=== PATIENT | female | born 1995 | race Caucasian/White ===

== ENCOUNTER 2020-05-26 10:52 | Inpatient (IN) | payer BC ==
[2020-05-26] MEDS ORDERED: SODIUM CHLORIDE 0.9% 1,000 ML IV STA ×2 (11:23→13:34)
--- NOTE | 2020-05-26 11:25 | ED ---
General Adult HPI - General Chief complaint: Urogenital Stated complaint: UTI Time Seen by Provider: 05/26/20 11:13 Source: patient, RN notes reviewed Mode of arrival: ambulatory Limitations: no limitations - History of Present Illness Initial comments: 25-year-old female presents to the emergency room for a chief complaint of abdominal pain. Patient reports that she started to develop abdominal pain 5 days ago. States it is in her lower abdomen. On Monday she went to urgent care and was told that she possibly had a urinary tract infection. She started on antibiotics then and was told she did not feel better today to come to the emergency room. Patient states she is still having lower abdominal pain. Worse on the right side. Hurts to lift her right leg up. She does state that she has a pressure with urinating but denies any burning sensation. Patient denies any lower upper back pain.Patient has no other complaints at this time including shortness of breath, chest pain, nausea or vomiting, headache, or visual changes. - Related Data Home Medications Medication Instructions Recorded Confirmed Sertraline [Zoloft] 25 mg PO DAILY 05/26/20 05/26/20 Sulfamethox-Tmp 800-160Mg [Bactrim 1 tab PO Q12HR 05/26/20 05/26/20 DS 800-160 mg] Allergies Allergy/AdvReac Type Severity Reaction Status Date / Time No Known Allergies Allergy Verified 05/26/20 11:58 Review of Systems ROS Statement: Those systems with pertinent positive or pertinent negative responses have been documented in the HPI. ROS Other: All systems not noted in ROS Statement are negative. Past Medical History Past Medical History: No Reported History History of Any Multi-Drug Resistant Organisms: None Reported Past Surgical History: No Surgical Hx Reported Past Psychological History: No Psychological Hx Reported Smoking Status: Former smoker Past Alcohol Use History: None Reported Past Drug Use History: None Reported General Exam Limitations: no limitations General appearance: alert, in no apparent distress Head exam: Present: atraumatic, normocephalic, normal inspection Eye exam: Present: normal appearance, PERRL, EOMI. Absent: scleral icterus, conjunctival injection, periorbital swelling ENT exam: Present: normal exam, mucous membranes moist Neck exam: Present: normal inspection, full ROM. Absent: tenderness, meningismus, lymphadenopathy Respiratory exam: Present: normal lung sounds bilaterally. Absent: respiratory distress, wheezes, rales, rhonchi, stridor Cardiovascular Exam: Present: regular rate, normal rhythm, normal heart sounds. Absent: systolic murmur, diastolic murmur, rubs, gallop, clicks GI/Abdominal exam: Present: soft, tenderness (generalized lower abdominal tenderness), normal bowel sounds (generalized lower abdominal tenderness). Absent: distended, guarding, rebound, rigid Course Vital Signs 05/26/20 11:06 Temperature 98.0 F Pulse Rate 120 H Respiratory 16 Rate Blood Pressure 111/73 O2 Sat by Pulse 97 Oximetry Medical Decision Making - Medical Decision Making Patient presents initially tachycardic. Regular however stable. Physical exam did reveal generalized lower abdominal tenderness. CBC does reveal leukocytosis of 21.6 with a left shift. CMP unremarkable. Urinalysis does show 4+ ketones, contaminated with squamous cells. CT abdomen and pelvis shows a probably ruptured appendicitis. patient was started on Zosyn, given IV fluids. On-call surgeon Dr. Hicks was consulted, accepts patient. - Lab Data Result diagrams: 05/26/20 11:32 05/26/20 11:32 Lab Results 05/26/20 05/26/20 05/26/20 Range/Units 11:32 11:32 11:32 WBC 21.6 H (3.8-10.6) k/uL RBC 4.88 (3.80-5.40) m/uL Hgb 14.2 (11.4-16.0) gm/dL Hct 42.7 (34.0-46.0) % MCV 87.5 (80.0-100.0) fL MCH 29.0 (25.0-35.0) pg MCHC 33.2 (31.0-37.0) g/dL RDW 13.6 (11.5-15.5) % Plt Count 244 (150-450) k/uL MPV 7.5 Neutrophils % 90 % Lymphocytes % 5 % Monocytes % 3 % Eosinophils % 1 % Basophils % 0 % Neutrophils # 19.6 H (1.3-7.7) k/uL Lymphocytes # 1.2 (1.0-4.8) k/uL Monocytes # 0.7 (0-1.0) k/uL Eosinophils # 0.1 (0-0.7) k/uL Basophils # 0.0 (0-0.2) k/uL Sodium (137-145) mmol/L Potassium (3.5-5.1) mmol/L Chloride (98-107) mmol/L Carbon Dioxide (22-30) mmol/L Anion Gap mmol/L BUN (7-17) mg/dL Creatinine (0.52-1.04) mg/dL Est GFR (CKD-EPI)AfAm (>60 ml/min/1.73 sqM) Est GFR (CKD-EPI)NonAf (>60 ml/min/1.73 sqM) Glucose (74-99) mg/dL Plasma Lactic Acid Micky (0.7-2.0) mmol/L Calcium (8.4-10.2) mg/dL Total Bilirubin (0.2-1.3) mg/dL AST (14-36) U/L ALT (4-34) U/L Alkaline Phosphatase (38-126) U/L Total Protein (6.3-8.2) g/dL Albumin (3.5-5.0) g/dL Amylase (30-110) U/L Lipase (23-300) U/L Urine Color Light Brown Urine Appearance Cloudy H (Clear) Urine pH 6.0 (5.0-8.0) Ur Specific Velva 1.035 (1.001-1.035) Urine Protein 2+ H (Negative) Urine Glucose (UA) Negative (Negative) Urine Ketones 4+ H (Negative) Urine Blood Small H (Negative) Urine Nitrite Negative (Negative) Urine Bilirubin 1+ H (Negative) Urine Urobilinogen 12.0 (<2.0) mg/dL Ur Leukocyte Esterase Small H (Negative) Urine RBC 5 (0-5) /hpf Urine WBC 10 H (0-5) /hpf Ur Squamous Epith Cells 26 H (0-4) /hpf Urine Bacteria Rare H (None) /hpf Hyaline Casts 6 H (0-2) /lpf Urine Mucus Many H (None) /hpf Urine HCG, Qual Not Detected (Not Detectd) 05/26/20 05/26/20 Range/Units 11:32 11:32 WBC (3.8-10.6) k/uL RBC (3.80-5.40) m/uL Hgb (11.4-16.0) gm/dL Hct (34.0-46.0) % MCV (80.0-100.0) fL MCH (25.0-35.0) pg MCHC (31.0-37.0) g/dL RDW (11.5-15.5) % Plt Count (150-450) k/uL MPV Neutrophils % % Lymphocytes % % Monocytes % % Eosinophils % % Basophils % % Neutrophils # (1.3-7.7) k/uL Lymphocytes # (1.0-4.8) k/uL Monocytes # (0-1.0) k/uL Eosinophils # (0-0.7) k/uL Basophils # (0-0.2) k/uL Sodium 135 L (137-145) mmol/L Potassium 4.2 (3.5-5.1) mmol/L Chloride 99 (98-107) mmol/L Carbon Dioxide 23 (22-30) mmol/L Anion Gap 13 mmol/L BUN 8 (7-17) mg/dL Creatinine 0.89 (0.52-1.04) mg/dL Est GFR (CKD-EPI)AfAm >90 (>60 ml/min/1.73 sqM) Est GFR (CKD-EPI)NonAf 90 (>60 ml/min/1.73 sqM) Glucose 119 H (74-99) mg/dL Plasma Lactic Acid Micky 1.6 (0.7-2.0) mmol/L Calcium 9.6 (8.4-10.2) mg/dL Total Bilirubin 1.1 (0.2-1.3) mg/dL AST 19 (14-36) U/L ALT 21 (4-34) U/L Alkaline Phosphatase 79 (38-126) U/L Total Protein 8.0 (6.3-8.2) g/dL Albumin 4.8 (3.5-5.0) g/dL Amylase 49 (30-110) U/L Lipase 72 (23-300) U/L Urine Color Urine Appearance (Clear) Urine pH (5.0-8.0) Ur Specific Velva (1.001-1.035) Urine Protein (Negative) Urine Glucose (UA) (Negative) Urine Ketones (Negative) Urine Blood (Negative) Urine Nitrite (Negative) Urine Bilirubin (Negative) Urine Urobilinogen (<2.0) mg/dL Ur Leukocyte Esterase (Negative) Urine RBC (0-5) /hpf Urine WBC (0-5) /hpf Ur Squamous Epith Cells (0-4) /hpf Urine Bacteria (None) /hpf Hyaline Casts (0-2) /lpf Urine Mucus (None) /hpf Urine HCG, Qual (Not Detectd) Disposition Clinical Impression: Leukocytosis, Ruptured appendicitis Disposition: ADMITTED IP TO THIS HOSP Is patient prescribed a controlled substance at d/c from ED?: No Referrals: Davis Lewis Jr, [Primary Care Provider] - 1-2 days Time of Disposition: 13:37
[2020-05-26 12:06] LABS: Basophils % (A) 0 %; Eosinophils # (A) 0.1 k/uL (0-0.7); Eosinophils % (A) 1 %; HCT 42.7 % (34.0-46.0); HGB 14.2 gm/dL (11.4-16.0); Lymphocytes # (A) 1.2 k/uL (1.0-4.8); Lymphocytes % (A) 5 %; MCHC 33.2 g/dL (31.0-37.0); MCV 87.5 fL (80.0-100.0); Mean Platelet Volume 7.5; Monocytes # (A) 0.7 k/uL (0-1.0); Monocytes % (A) 3 %; Neutrophils # (A) 19.6 k/uL (1.3-7.7); Neutrophils % (A) 90 %; Platelet Count 244 k/uL (150-450); RBC 4.88 m/uL (3.80-5.40); RDW 13.6 % (11.5-15.5); WBC 21.6 k/uL (3.8-10.6)
[2020-05-26 12:07] LABS: ALT 21 U/L (4-34); AST 19 U/L (14-36); African American GFR (CKD) >90 (>60 ml/min/1.73 sqM); Albumin 4.8 g/dL (3.5-5.0); Alkaline Phosphatase 79 U/L (38-126); Amylase 49 U/L (30-110); Anion Gap 13 mmol/L; Blood Urea Nitrogen 8 mg/dL (7-17); Calcium 9.6 mg/dL (8.4-10.2); Carbon Dioxide 23 mmol/L (22-30); Chloride 99 mmol/L (98-107); Glucose 119 mg/dL (74-99); Lipase 72 U/L (23-300); Non-African American GFR(CKD) 90 (>60 ml/min/1.73 sqM); Potassium 4.2 mmol/L (3.5-5.1); Sodium 135 mmol/L (137-145); Total Bilirubin 1.1 mg/dL (0.2-1.3)
[2020-05-26 12:28] LABS: Appearance,Urine Cloudy (Clear); Bacteria,Urine Rare /hpf; Bilirubin,Urine 1+ (Negative); Blood,Urine Small (Negative); Color,Urine Light Brown; Glucose,Urine (UA) Negative (Negative); Hyaline Casts,Urine 6 /lpf (0-2); Ketones,Urine 4+ (Negative); Leukocyte Esterase,Urine Small (Negative); Mucus,Urine Many /hpf; Nitrite,Urine Negative (Negative); Protein,Urine 2+ (Negative); RBC,Urine 5 /hpf (0-5); Specific Gravity,Urine 1.035 (1.001-1.035); Squamous Epithelial Cell,Urine 26 /hpf (0-4); WBC,Urine 10 /hpf (0-5)
[2020-05-26] MEDS ORDERED: PIPERACILLIN-TAZOBACTAM 3.375 GM in SODIUM CHLORIDE 0.9% 100 ML IVPB STA (13:17)
--- NOTE | 2020-05-26 13:19 | CT ---
EXAMINATION TYPE: CT abdomen pelvis w con DATE OF EXAM: 05/26/2020 HISTORY: Abd and pelvic pain, UTI CT DLP: 1012.9mGycm Automated Exposure Control for Dose Reduction was Utilized. CONTRAST: CT scan of the abdomen and pelvis is performed without oral but with IV Contrast, patient injected wi th 100 mL of Isovue 300. COMPARISON: None FINDINGS: LUNG BASES: No significant abnormality is appreciated. LIVER/GB: No significant abnormality is appreciated. PANCREAS: No significant abnormality is seen. SPLEEN: No significant abnormality is seen. ADRENALS: No significant abnormality is seen. KIDNEYS: Symmetric cortical medullary uptake and excretion without hydronephrosis seen bilaterally. S ubcentimeter low dense lesion laterally left kidney lower pole level coronal image 61 and upper to mi d pole of the right kidney coronal image 67 felt to reflect benign subcentimeter thin-walled cysts ar e noted. No suspicious wall thickening in the poorly distended bladder. BOWEL: Slightly suboptimal evaluation of bowel without enteric contrast. Moderate amount of free flui d in the pelvis axial image 73 posterior to the superior aspect of the uterus. No suspicious small or large bowel dilatation. Abnormal appearance to the terminal ileum which is fecal filled and shows mild to moderate mucosal en hancement and wall thickening with mucosal irregularity, there is intraluminal small bowel feces sign . Appendix has abnormal intraluminal hyperdense material mid to distal aspect with irregular margins an d moderate to severe surrounding fluid and fat stranding. There is focus of free air in the rectum im age 61 suspected joint cannot definitively localized to bowel loop near appendiceal tip. Additional a djacent ileal loops show small bowel feces sign with mild mucosal irregularities and wall enhancement along with wall thickening. No well-formed fluid collection or drainable abscess noted. UTERUS/ADNEXA: Anteverted uterus. Symmetric appearance to both ovaries upper limits of normal in size axial image 74. LYMPH NODES: No greater than 1cm abdominal or pelvic lymph nodes are appreciated. Prominent but subce ntimeter right lower quadrant mesenteric lymph nodes coronal image 44 noted. OSSEOUS STRUCTURES: Transitional type vertebra with sacralized left L6 segment. OTHER: No significant additional abnormality is seen. IMPRESSION: CT findings consistent with a severe acute appendicitis as detailed above. Suspect compli cated by perforation. Critical results communicated to ordering emergency room physician chemistry research assistant via telephone at time of dictation.
[2020-05-26] MEDS ORDERED: NALOXONE 0.4 MG/ML 1 ML VIAL IV PRN (13:37)
[2020-05-26] MEDS ORDERED: ONDANSETRON 4 MG/2 ML VIAL IVP PRN (13:37)
[2020-05-26] MEDS ORDERED: ACETAMINOPHEN TAB 325 MG TAB PO PRN (13:37)
[2020-05-26] MEDS ORDERED: HYDROmorphone 0.5 MG/0.5 ML SYRINGE IVP STA (13:38)
--- NOTE | 2020-05-26 14:56 | P.GSHP ---
History of Present Illness H&P Date: 05/26/20 CHIEF COMPLAINT: Abdominal pain HISTORY OF PRESENT ILLNESS: This is a 25-year-old female with a known history of depression. She presents to emergency room with complaints of a right lower quadrant abdominal pain that started about 5 days ago. Patient had gone to an urgent care on Monday and has been under treatment for possible UTI. However, patient continued to have lower abdominal pain mostly in the right lower quadrant. Patient denies any fever chills or sweats. Denies any nausea or vo miting. Denies any bowel changes. Computed tomography scan had shown findings consistent with severe acute appendicitis. Complicated by perforation. Patient seen and examined with Dr. barrera PAST MEDICAL HISTORY: See list. PAST SURGICAL HISTORY: See list. MEDICATIONS: See list. ALLERGIES: See list. SOCIAL HISTORY: No illicit drug use. REVIEW OF SYSTEMS: CONSTITUTIONAL: Denies fever or chills. HEENT: Denies blurred vision, vision changes, or eye pain. Denies hemoptysis CARDIOVASCULAR: Denies chest pain or pressure. RESPIRATORY: No shortness of breath. GASTROINTESTINAL: See HPI for pertinent findings HEMATOLOGIC: Denies bleeding disorders. GENITOURINARY: Denies any blood in urine or increased urinary frequency. SKIN: Denies pruitis. Denies rash. PHYSICAL EXAM: VITAL SIGNS: Reviewed GENERAL: Well-developed in no acute distress. HEENT: No sclera icterus. Extraocular movements grossly intact. Moist buccal mucosa. Head is atraumatic, normocephalic. No nasal drainage. ABDOMEN: Soft. Nondistended. righht lower Quadrant tenderness NEUROLOGIC: Alert and oriented. Cranial nerves II through XII grossly intact. LABORATORY DATA: WBC 21.6 Hgb 14.2 platelets 244 sodium 135 BUN 8 creatinine 0.89 lactic acid 1.6 LFTs normal lipase normal IMAGING: See above ASSESSMENT: 1. Acute appendicitis PLAN: -Patient scheduled for laparoscopic appendectomy today with Dr. barrera -Keep patient nothing by mouth -Continue antibiotics -Continue IV fluids -continue pain medication as needed Physician Sectionizer note has been reviewed by physician. Signing provider agrees with the documented findings, assessment, and plan of care. Past Medical History Past Medical History: No Reported History History of Any Multi-Drug Resistant Organisms: None Reported Past Surgical History: No Surgical Hx Reported Past Psychological History: No Psychological Hx Reported Smoking Status: Former smoker Past Alcohol Use History: None Reported Past Drug Use History: None Reported Medications and Allergies Home Medications Medication Instructions Recorded Confirmed Type Sertraline [Zoloft] 25 mg PO DAILY 05/26/20 05/26/20 History Sulfamethox-Tmp 800-160Mg [Bactrim 1 tab PO Q12HR 05/26/20 05/26/20 History DS 800-160 mg] Allergies Allergy/AdvReac Type Severity Reaction Status Date / Time No Known Allergies Allergy Verified 05/26/20 11:58 Surgical - Exam Vital Signs Temp Pulse Resp BP Pulse Ox 98.0 F 120 H 16 111/73 97 05/26/20 11:06 05/26/20 11:06 05/26/20 11:06 05/26/20 11:06 05/26/20 11:06 Results - Labs 05/26/20 11:32 05/26/20 11:32 Abnormal Lab Results - Last 24 Hours (Table) 05/26/20 05/26/20 05/26/20 Range/Units 11:32 11:32 11:32 WBC 21.6 H (3.8-10.6) k/uL Neutrophils # 19.6 H (1.3-7.7) k/uL Sodium 135 L (137-145) mmol/L Glucose 119 H (74-99) mg/dL Urine Appearance Cloudy H (Clear) Urine Protein 2+ H (Negative) Urine Ketones 4+ H (Negative) Urine Blood Small H (Negative) Urine Bilirubin 1+ H (Negative) Ur Leukocyte Esterase Small H (Negative) Urine WBC 10 H (0-5) /hpf Ur Squamous Epith Cells 26 H (0-4) /hpf Urine Bacteria Rare H (None) /hpf Hyaline Casts 6 H (0-2) /lpf Urine Mucus Many H (None) /hpf Diabetes panel 05/26/20 Range/Units 11:32 Sodium 135 L (137-145) mmol/L Potassium 4.2 (3.5-5.1) mmol/L Chloride 99 (98-107) mmol/L Carbon Dioxide 23 (22-30) mmol/L BUN 8 (7-17) mg/dL Creatinine 0.89 (0.52-1.04) mg/dL Glucose 119 H (74-99) mg/dL Calcium 9.6 (8.4-10.2) mg/dL AST 19 (14-36) U/L ALT 21 (4-34) U/L Alkaline Phosphatase 79 (38-126) U/L Total Protein 8.0 (6.3-8.2) g/dL Albumin 4.8 (3.5-5.0) g/dL Calcium panel 05/26/20 Range/Units 11:32 Calcium 9.6 (8.4-10.2) mg/dL Albumin 4.8 (3.5-5.0) g/dL Pituitary panel 05/26/20 Range/Units 11:32 Sodium 135 L (137-145) mmol/L Potassium 4.2 (3.5-5.1) mmol/L Chloride 99 (98-107) mmol/L Carbon Dioxide 23 (22-30) mmol/L BUN 8 (7-17) mg/dL Creatinine 0.89 (0.52-1.04) mg/dL Glucose 119 H (74-99) mg/dL Calcium 9.6 (8.4-10.2) mg/dL Adrenal panel 05/26/20 Range/Units 11:32 Sodium 135 L (137-145) mmol/L Potassium 4.2 (3.5-5.1) mmol/L Chloride 99 (98-107) mmol/L Carbon Dioxide 23 (22-30) mmol/L BUN 8 (7-17) mg/dL Creatinine 0.89 (0.52-1.04) mg/dL Glucose 119 H (74-99) mg/dL Calcium 9.6 (8.4-10.2) mg/dL Total Bilirubin 1.1 (0.2-1.3) mg/dL AST 19 (14-36) U/L ALT 21 (4-34) U/L Alkaline Phosphatase 79 (38-126) U/L Total Protein 8.0 (6.3-8.2) g/dL Albumin 4.8 (3.5-5.0) g/dL
[2020-05-26] MEDS ORDERED: LACTATED RINGERS 1,000 ML IV ONE ×2 (15:16→18:08)
[2020-05-26] MEDS ORDERED: ONDANSETRON 4 MG/2 ML VIAL IVP ONE ×2 (15:30→17:52)
[2020-05-26] MEDS ORDERED: MIDAZOLAM 2 MG/2 ML VIAL IVP ONE (15:30)
[2020-05-26] MEDS ORDERED: DEXAMETHASONE SOD PHOSPHATE 4 MG/ML 1 ML VIAL IVP ONE (15:30)
[2020-05-26] MEDS ORDERED: LIDOCAINE 1%-EPI 1:100,000 20 ML VIAL SQ ONE ×2 (16:36→16:59)
[2020-05-26] MEDS ORDERED: fentaNYL (PF) 50 MCG/ML 2 ML AMP ONE (16:38)
[2020-05-26] MEDS ORDERED: NEOSTIGMINE 1 MG/ML 10 ML VIAL ONE (16:38)
[2020-05-26] MEDS ORDERED: SUCCINYLCHOLINE CHLORIDE 100 MG/5 ML SYR IV ONE (16:38)
[2020-05-26] MEDS ORDERED: PROPOFOL 10 MG/ML 20 ML VIAL IV ONE (16:38)
[2020-05-26] MEDS ORDERED: GLYCOPYRROLATE 0.2 MG/ML 2 ML VIAL ONE (16:38)
[2020-05-26] MEDS ORDERED: MIDAZOLAM 2 MG/2 ML VIAL ONE (16:38)
[2020-05-26] MEDS ORDERED: ROCURONIUM 10 MG/ML (5 ML VIAL) IV ONE (16:38)
[2020-05-26] MEDS ORDERED: LIDOCAINE 1% INJ 10MG/ML (20 ML MDV) ONE (16:38)
[2020-05-26] MEDS ORDERED: HEPARIN SODIUM,PORCINE/PF 5,000 UNIT/0.5 ML SYRINGE SQ ONE (16:39)
[2020-05-26] MEDS ORDERED: HEPARIN SODIUM,PORCINE 5,000 UNIT/ML 1 ML VIAL SQ ONE (16:40)
--- NOTE | 2020-05-26 17:36 | P.OP ---
Date of Procedure: 05/26/20 Preoperative Diagnosis: Acute appendicitis Postoperative Diagnosis: Acute appendicitis with rupture Procedure(s) Performed: Laparoscopic appendectomy Anesthesia: RAJ Surgeon: Dioni Hicks Estimated Blood Loss (ml): 5 Pathology: other (Appendix) Condition: stable Disposition: PACU Description of Procedure: The patient's placed on the operating table in the supine position. The patient received general anesthesia. The abdomen was prepped and draped in the usual sterile fashion. The skin was anesthetized 1% local Xylocaine at the trocar sites. Using an 11 blade the skin was incised at the umbilicus. The umbilicus was grasped with a Juaquin clamp and then a Veress needle was placed into the peritoneal cavity. Position of the Veress needle was confirmed with positive drop test. After adequate insufflation a 5 mm trocar was placed into the peritoneal cavity. The abdomen was further insufflated. And then the laparoscope was placed in the peritoneal cavity. Next a 5 mm trocar was placed in the midline suprapubic position. And then a 10 mm trocar was placed in the midline epigastric position. The patient was rotated with the right side up and in Trendelenburg. The appendix was visualized. The appendix was inflamed. There was evidence of microperforation of the tip the appendix. The appendix appeared to be inflamed. The appendix was grasped and then using the Harmonic scissors the mesoappendix was divided. A PDS Endoloop was then placed around the base of the appendix. And then the appendix was divided using Harmonic scissors. The appendix was placed into an Endo Catch and brought out through the 10 mm trocar site. The abdomen was irrigated. There is no bleeding seen. The trochars withdrawn. The skin was closed interrupted 3-0 Monocryl suture. Dermabond dressing was applied. Patient was sent to recovery room in stable condition.
[2020-05-26] MEDS: HYDROmorphone 1 MG/ML 1 ML SYRINGE IVP ONE ×2 (17:53→17:58)
[2020-05-26] MEDS ORDERED: HYDROmorphone 0.5 MG/0.5 ML SYRINGE IVP ONE ×2 (18:05→18:22)
[2020-05-26] MEDS: PIPERACILLIN-TAZOBACTAM 3.375 GM in SODIUM CHLORIDE 0.9% 100 ML IVPB SCH (21:15)
[2020-05-26] MEDS: HYDROmorphone 0.5 MG/0.5 ML SYRINGE IVP PRN (21:33)
[2020-05-26] MEDS: SODIUM CHLORIDE 0.9% 1,000 ML IV SCH ×2 (21:33)
[2020-05-27] MEDS: HYDROmorphone 0.5 MG/0.5 ML SYRINGE IVP PRN ×3 (00:34→06:57)
[2020-05-27] MEDS: SODIUM CHLORIDE 0.9% 1,000 ML IV SCH ×2 (03:56→11:25)
[2020-05-27] MEDS: PIPERACILLIN-TAZOBACTAM 3.375 GM in SODIUM CHLORIDE 0.9% 100 ML IVPB SCH ×3 (05:07→21:39)
[2020-05-27] MEDS: ENOXAPARIN 40 MG/0.4 ML SYRINGE SQ SCH (08:03)
[2020-05-27 09:02] LABS: Basophils % (A) 0 %; Eosinophils % (A) 0 %; HCT 34.6 % (34.0-46.0); HGB 11.4 gm/dL (11.4-16.0); Lymphocytes # (A) 0.7 k/uL (1.0-4.8); Lymphocytes % (A) 5 %; MCHC 32.9 g/dL (31.0-37.0); MCV 88.3 fL (80.0-100.0); Mean Platelet Volume 7.7; Monocytes # (A) 0.5 k/uL (0-1.0); Monocytes % (A) 4 %; Neutrophils # (A) 12.3 k/uL (1.3-7.7); Neutrophils % (A) 90 %; Platelet Count 202 k/uL (150-450); RBC 3.92 m/uL (3.80-5.40); RDW 13.6 % (11.5-15.5); WBC 13.6 k/uL (3.8-10.6)
[2020-05-27] MEDS: KETOROLAC 15 MG/ML 1 ML VIAL IVP PRN ×3 (09:27→21:37)
[2020-05-27] MEDS: HYDROmorphone 1 MG/ML 1 ML SYRINGE IVP PRN ×2 (11:39→17:25)
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
[2020-05-28 01:13] VITALS: PULSE 94
[2020-05-28] MEDS: SODIUM CHLORIDE 0.9% 1,000 ML IV SCH ×3 (01:54→11:39)
[2020-05-28] MEDS: HYDROmorphone 1 MG/ML 1 ML SYRINGE IVP PRN (02:04)
[2020-05-28] MEDS: PIPERACILLIN-TAZOBACTAM 3.375 GM in SODIUM CHLORIDE 0.9% 100 ML IVPB SCH ×2 (05:20→13:53)
[2020-05-28] MEDS: KETOROLAC 15 MG/ML 1 ML VIAL IVP PRN (06:32)
[2020-05-28 06:58] LABS: Basophils % (A) 0 %; Eosinophils % (A) 0 %; HCT 33.1 % (34.0-46.0); HGB 10.8 gm/dL (11.4-16.0); Lymphocytes # (A) 1.2 k/uL (1.0-4.8); Lymphocytes % (A) 13 %; MCH 28.9 pg (25.0-35.0); MCHC 32.7 g/dL (31.0-37.0); MCV 88.3 fL (80.0-100.0); Mean Platelet Volume 7.9; Monocytes # (A) 0.4 k/uL (0-1.0); Monocytes % (A) 4 %; Neutrophils # (A) 7.3 k/uL (1.3-7.7); Neutrophils % (A) 82 %; Platelet Count 225 k/uL (150-450); RBC 3.75 m/uL (3.80-5.40); RDW 13.6 % (11.5-15.5)
[2020-05-28] MEDS: ENOXAPARIN 40 MG/0.4 ML SYRINGE SQ SCH (07:59)
[2020-05-28 08:46] VITALS: BP 119/76; RESP 20; TEMP 98.7
[2020-05-28] MEDS: HYDROcodone/APAP 5-325MG 1 EACH TAB PO PRN ×2 (11:39→15:36)
--- NOTE | 2020-05-28 14:51 | P.DS ---
Providers Date of admission: 05/26/20 13:22 Expected date of discharge: 05/28/20 Attending physician: Dioni Hicks Primary care physician: Davis [facility] Course: Discharge diagnosis 1. Acute appendicitis with rupture status post laparoscopic appendectomy Hospital course This is a 25-year-old female with a known history of depression. She presents to emergency room with complaints of a right lower quadrant abdominal pain that started about 5 days ago. Patient had gone to an urgent care on Monday and has been under treatment for possible UTI. However, patient continued to have lower abdominal pain mostly in the right lower quadrant. Patient denies any fever chills or sweats. Denies any nausea or vomiting. Denies any bowel changes. Computed tomography scan had shown findings consistent with severe acute appendicitis. Complicated by perforation. Patient is status post laparoscopic appendectomy for acute appendicitis with rupture. Patient tolerated surgery well. Her pain is controlled. She is tolerating diet. She is up and ambulating. She is having bowel movements and flatus. Denies any difficulty urinating. Patient is stable for discharge. Please refer to chart for any further details. Physician Router Tender note has been reviewed by physician. Signing provider agrees with the documented findings, assessment, and plan of care. Patient Condition at Discharge: Stable Plan - Discharge Summary Discharge Rx Participant: Yes New Discharge Prescriptions: New HYDROcodone/APAP 5-325MG [Backus 5-325] 1 tab PO Q6HR PRN 3 Days #12 tab PRN Reason: Pain metroNIDAZOLE [Flagyl] 500 mg PO BID #14 tab Levofloxacin [Levaquin] 500 mg PO DAILY 7 Days #7 tab Continue Sertraline [Zoloft] 25 mg PO DAILY Discontinued Sulfamethox-Tmp 800-160Mg [Bactrim DS 800-160 mg] 1 tab PO Q12HR Discharge Medication List Sertraline [Zoloft] 25 mg PO DAILY 05/26/20 [History] HYDROcodone/APAP 5-325MG [Backus 5-325] 1 tab PO Q6HR PRN 3 Days #12 tab 05/28/20 [Rx] Levofloxacin [Levaquin] 500 mg PO DAILY 7 Days #7 tab 05/28/20 [Rx] metroNIDAZOLE [Flagyl] 500 mg PO BID #14 tab 05/28/20 [Rx] Follow up Appointment(s)/Referral(s): Debbie,Davis Jr, DO [Primary Care Provider] - 1-2 days Dioni Hicks MD [STAFF PHYSICIAN] - 1 Week Activity/Diet/Wound Care/Special Instructions: No driving while taking Backus No lifting over 10 pounds You may shower. No soaking or tub baths for 2 weeks Very light activity until you are reevaluated at your follow up appointment with your surgeon Discharge Disposition: HOME SELF-CARE
== END 2020-05-28 15:44 | disposition home or self-care (01) | DRG 339 ==
LOC: EC 10:52 → 6PED 13:22
PROVIDERS: ADMIT Surgery; ATTEND Surgery
PROC: 0DTJ4ZZ Resection of Appendix, Percutaneous Endoscopic Approach (ICD-10-PCS; principal; 2020-05-26 11:50)
DX: K35.32 Acute appendicitis with perforation, localized peritonitis, and gangrene, without abscess (principal); N39.0 Urinary tract infection, site not specified; F32.9 Major depressive disorder, single episode, unspecified; Z20.822 Contact with and (suspected) exposure to COVID-19; Z87.891 Personal history of nicotine dependence; Z79.899 Other long term (current) drug therapy
CPT/HCPCS: 36415; 74177; 80053; 81001; 81025; 82150; 83605; 83690; 85025; 87040; 87086; 87635; 88304; 96360; 99285